=== PATIENT | female | born 1975 | race Caucasian/White ===

== ENCOUNTER 2017-12-21 11:46 | Emergency (ER) | payer MEDICAID ==
[~2017-12-21] VITALS: Ht 160 cm; Wt 88.5 kg
[2017-12-21 12:01] VITALS: BP 104/55; Ht 160 cm; Wt 88.5 kg
== END 2017-12-21 14:19 | disposition home or self-care (01) ==
LOC: ED 11:46
DX: N39.0 Urinary tract infection, site not specified (principal)

== ENCOUNTER 2019-11-20 11:31 | Emergency (ER) | payer MEDICAID ==
[~2019-11-20] VITALS: Ht 162.6 cm; Wt 112.5 kg
[2019-11-20 11:41] VITALS: Ht 162.6 cm; Wt 112.5 kg
[2019-11-20 12:40] VITALS: BP 117/40
== END 2019-11-20 12:40 | disposition home or self-care (01) ==
LOC: ED 11:31
DX: N39.0 Urinary tract infection, site not specified (principal)